=== PATIENT | male | born 1970 | race Caucasian/White ===

== ENCOUNTER 2018-03-13 23:42 | Emergency (ER) | payer OTHER ==
[2018-03-14] MEDS ORDERED: LEVETIRACETAM 1000 MG/NACL-ISO 1,000 MG/100 ML RTUPB IV ONE (00:23)
--- NOTE | 2018-03-14 00:32 | ER Document Report ---
ED General - General Chief Complaint: Seizure Stated Complaint: POSSIBLE SEIZURE Time Seen by Provider: 03/13/18 23:56 Notes: Patient is a 47-year-old male who presents to the emergency department having a seizure at dinner. He was on a first date and they went to watch the movie [place]. After the movie they went to dinner and he had a seizure. He does not recollect anything that happened after sitting down for dinner. His date witnessed the seizure and stated he was stiff and had jerking movements. He did bite his tongue during the seizure. The date and other bystanders lowered him to the ground, and she stated that he did not his head. He has a known history of seizures with his last seizure being 5 years ago. He is currently on Dilantin and stated he was on another seizure medication, but does not know what the medication is. TRAVEL OUTSIDE OF THE [place] IN LAST 30 DAYS: No - Related Data Allergies/Adverse Reactions: No Known Allergies Allergy (Verified 03/14/18 01:05) Past Medical History - General Information source: Patient - Social History Smoking Status: Current Every Day Smoker Frequency of alcohol use: Occasional Drug Abuse: None Family History: Reviewed & Not Pertinent Patient has suicidal ideation: No Patient has homicidal ideation: No Renal/ Medical History: Denies: Hx Peritoneal Dialysis Review of Systems - Review of Systems Notes: REVIEW OF SYSTEMS: CONSTITUTIONAL : Denies fever, chills, or sweats. Denies recent illness. EENT: Positive for mild tongue pain. Denies eye, ear, throat, symptoms. Denies nasal or sinus congestion. CARDIOVASCULAR: Denies chest pain. RESPIRATORY: Denies cough, cold, or chest congestion. Denies shortness of breath, difficulty breathing, or wheezing. GASTROINTESTINAL: Denies abdominal pain. Denies nausea, vomiting, or diarrhea. Denies constipation. MUSCULOSKELETAL: Denies neck or back pain or joint pain or swelling. SKIN: Denies rash or skin lesions. HEMATOLOGIC : Denies easy bruising or bleeding. LYMPHATIC: Denies swollen, enlarged glands. NEUROLOGICAL: Denies altered mental status or loss of consciousness. Denies headache. Denies weakness or paralysis or loss of use of either side. Denies problems with gait or speech. Denies sensory or motor loss. PSYCHIATRIC: Denies anxiety or stress or depression. ALL OTHER SYSTEMS REVIEWED AND NEGATIVE. Physical Exam - Vital signs Vitals: Resp BP Pulse Ox 10 L 105/79 93 03/13/18 23:53 03/13/18 23:53 03/13/18 23:53 - Notes Notes: PHYSICAL EXAMINATION: GENERAL: Well-appearing, well-nourished and in no acute distress. HEAD: Atraumatic, normocephalic. EYES: Pupils equal round and reactive to light, extraocular movements intact, sclera anicteric, conjunctiva are normal. ENT: Bite benítez noted to right side of tongue. Nares patent, oropharynx clear without exudates. Moist mucous membranes. NECK: Normal range of motion, supple without lymphadenopathy LUNGS: Breath sounds clear to auscultation bilaterally and equal. No wheezes rales or rhonchi. HEART: Regular rate and rhythm without murmurs ABDOMEN: Soft, nontender, normoactive bowel sounds. No guarding, no rebound. No masses appreciated. EXTREMITIES: Normal range of motion, no pitting or edema. No cyanosis. NEUROLOGICAL: No focal neurological deficits. Moves all extremities spontaneously and on command. PSYCH: Normal mood, normal affect. SKIN: Warm, Dry, normal turgor, no rashes or lesions noted. Course - Re-evaluation Re-evalutation: 03/14/18 00:34 Patient is a 47-year-old male who presents emergency department with a seizure which happened at dinner. He has a known history of seizures with the last one occurring 5 years ago. He will be loaded with Keppra IV. 03/14/18 01:48 After reviewing the patient's labs, his chemistries are unremarkable and his Dilantin level is undetected. After re-interviewing the patient, he states he does not know which medications he is on, but does take to antiseizure medications. I have advised the patient that he needs to know what medications he is taking, and that it is important to keep track of them. He is stable at this time, labs have been discussed with the patient. Verbal instructions to follow-up with his neurologist have been given. Patient is ready for discharge. - Vital Signs Vital signs: Temp Pulse Resp BP Pulse Ox 98.5 F 16 107/78 94 03/14/18 00:10 03/14/18 00:01 03/14/18 00:01 03/14/18 00:01 - Laboratory Result Diagrams: 03/14/18 00:25 03/14/18 00:25 Laboratory results interpreted by me: 03/14/18 03/14/18 03/14/18 00:25 00:25 00:25 RDW 14.4 H Glucose 146 H Phenytoin < 3.0 L Discharge - Discharge Clinical Impression: Seizure Condition: Stable Additional Instructions: You have been seen in the emergency department today for his seizure. Please follow-up on Thursday your neurologist in regards to sanjuana's visit. Please review your medications and know which medications you are taking. Your Dilantin level tonight was undetectable. If you have a seizure again, develop weakness, numbness, tingling, or have any symptoms that are worrisome to you, please return to the emergency department as soon as possible.
[2018-03-14 00:35] LABS: ABSOLUTE BASOPHILS # (AUTO) 0.1 10^3/uL (0.0-0.2); ABSOLUTE EOSINOPHILS # (AUTO) 0.1 10^3/uL (0.0-0.6); ABSOLUTE LYMPHOCYTES (AUTO) 1.9 10^3/uL (0.5-4.7); ABSOLUTE MONOCYTES (AUTO) 0.7 10^3/uL (0.1-1.4); ABSOLUTE NEUT (AUTO) 7.6 10^3/uL (1.7-8.2); BASOPHILS % (AUTO) 0.7 % (0-2); HEMATOCRIT 48.2 % (37.9-51.0); HEMOGLOBIN 16.4 g/dL (13.5-17.0); LYMPHOCYTES % (AUTO) 18.6 % (13-45); MEAN CORPUSCULAR HEMOGLOBIN 29.8 pg (27.0-33.4); MEAN CORPUSCULAR VOLUME 88 fl (80-97); MONOCYTES % (AUTO) 6.6 % (3-13); PLATELET COUNT 281 10^3/uL (150-450); RED CELL DISTRIBUTION WIDTH 14.4 % (11.5-14.0); SEGMENTED NEUTROPHILS % (AUTO) 73.1 % (42-78); TOTAL CELLS COUNTED % (AUTO) 100 %; WHITE BLOOD COUNT 10.4 10^3/uL (4.0-10.5)
[2018-03-14 01:21] LABS: ALANINE AMINOTRANSFERASE 27 U/L (21-72); ALBUMIN 4.4 g/dL (3.5-5.0); ALKALINE PHOSPHATASE 90 U/L (38-126); ANION GAP 15 (5-19); ASPARTATE AMINO TRANSFERASE 25 U/L (17-59); BILIRUBIN,DIRECT 0.2 mg/dL (0.0-0.4); BILIRUBIN,TOTAL 0.5 mg/dL (0.2-1.3); BLOOD UREA NITROGEN 14 mg/dL (7-20); CALCIUM 9.8 mg/dL (8.4-10.2); CARBON DIOXIDE 25 mmol/L (22-30); CHLORIDE 101 mmol/L (98-107); GLUCOSE 146 mg/dL (75-110); POTASSIUM 3.8 mmol/L (3.6-5.0); SODIUM 141.2 mmol/L (137-145); TOTAL PROTEIN 7.5 g/dL (6.3-8.2)
[2018-03-14 02:23] VITALS: BP 123/98
[2018-03-14] MEDS ORDERED: ACETAMINOPHEN 325 MG TABLET PO ONE (02:39)
== END 2018-03-14 02:52 | disposition home or self-care (01) ==
LOC: ER 23:42
DX: R56.9 Unspecified convulsions (principal); Z79.899 Other long term (current) drug therapy; K14.6 Glossodynia; W50.3XXA Accidental bite by another person, initial encounter; F17.200 Nicotine dependence, unspecified, uncomplicated; Y93.89 Activity, other specified; Y92.511 Restaurant or cafe as the place of occurrence of the external cause
CPT/HCPCS: 99284; 96374; 36415; 83735; 80185; 85025; 80053; J1953